=== PATIENT | female | born 1990 | race Two or more races ===

== ENCOUNTER 2021-12-17 20:25 | Observation (INO) | payer MEDICAID ==
[~2021-12-17] VITALS: Ht 160 cm; Wt 108.9 kg
[2021-12-17] MEDS ORDERED: PRENCAP75 OR (21:12)
[2021-12-17 22:32] LABS: Urine Bacteria NONE SEEN /hpf (None Seen); Urine Blood TRACE /uL (Negative); Urine Hyaline Cast FEW /lpf (0 - 2); Urine Specific Gravity 1.019 (1.001-1.035); Urine WBC 1 /hpf (0 - 5)
== END 2021-12-17 22:53 | disposition home or self-care (01) ==
LOC: LDRP 20:25
PROVIDERS: ADMIT Obstetrics & Gynecology; ATTEND Obstetrics & Gynecology
DX: O26.852 Spotting complicating pregnancy, second trimester (principal); Z3A.27 27 weeks gestation of pregnancy; Z79.899 Other long term (current) drug therapy
CPT/HCPCS: 59025; 76815; 81001; 81002; 94760; G0378